=== PATIENT | female | born 1995 | race Caucasian/White ===

== ENCOUNTER 2017-05-24 02:52 | Emergency (ER) | payer BC ==
[~2017-05-24] VITALS: Ht 167.6 cm; Wt 104.5 kg
[2017-05-24 02:57] VITALS: Ht 167.6 cm; Wt 104.5 kg
[2017-05-24] MEDS ORDERED: SOD CHLORIDE 0.9% 500 ML IV STA (03:31)
[2017-05-24] MEDS ORDERED: morphine 4 MG/ML VIAL IV STA ×2 (03:31→04:44)
[2017-05-24] MEDS ORDERED: ONDANSETRON 4 MG INJ IV STA (03:31)
[2017-05-24 04:06] LABS: BASOPHILS % 0.5 % (0.0-2.0); EOSINOPHILS # 0.1 10^3/ul (0.0-0.5); EOSINOPHILS % 1.7 % (0.0-7.0); HEMATOCRIT 41.7 % (37.0-47.0); HEMOGLOBIN 13.7 g/dl (12.0-16.0); LYMPHOCYTES # 2.9 10^3/ul (0.8-2.9); LYMPHOCYTES % 38.2 % (15.0-51.0); MEAN CORPUSCULAR HEMOGLOBIN 26.7 pg (29.0-33.0); MEAN CORPUSCULAR HGB CONC 32.9 g/dl (32.0-37.0); MEAN CORPUSCULAR VOLUME 81.3 fl (82.0-101.0); MEAN PLATELET VOLUME 9.1 fl (7.4-10.4); MONOCYTE # 0.6 10^3/ul (0.3-0.9); MONOCYTES % 7.3 % (0.0-11.0); PLATELET COUNT 310 10^3/UL (140-415); RED BLOOD COUNT 5.13 10^6/ul (4.20-5.40); RED CELL DISTRIBUTION WIDTH 13.1 % (11.5-14.5); WHITE BLOOD COUNT 7.7 10^3/ul (4.8-10.8)
--- NOTE | 2017-05-24 04:18 | RADRPT ---
PROCEDURE: Ultrasound of the abdomen. CLINICAL INDICATION: Right upper quadrant pain. TECHNIQUE: Sonographic images of the abdomen were performed. COMPARISON: No pertinent prior examinations were submitted for comparison. FINDINGS: Liver: The liver is diffusely increased in echogenicity and enlarged, measuring approximately 18.8 cm. The hepatic veins and portal veins are patent with appropriate directional flow. No intrahepatic ductal dilatation is seen. Gallbladder: Multiple stones are noted within the gallbladder. There is no definite gallbladder wal l thickening or pericholecystic free fluid. The common duct measures 4.4 mm. Pancreas: There is limited evaluation of the pancreatic body and tail. The visualized portions of the pancreas are unremarkable. Kidneys: The right kidney measures 11.3 cm. There is normal corticomedullary differentiation. Ther e is no evidence of renal calculus or hydronephrosis. IVC: The visualized portion of the inferior vena cava is unremarkable. Aorta: Normal in size. Free fluid: None. IMPRESSION: Cholelithiasis. Hepatomegaly and hepatic steatosis. RPTAT: HIKT .Aman Oleary MD, Date Time Electronically viewed and signed by .Aman Oleary MD, on 05/24/2017 04:18 .T/
[2017-05-24 04:26] LABS: ALBUMIN 4.1 g/dl (3.3-4.9); ALBUMIN/GLOBULIN RATIO 1.1; BILIRUBIN,INDIRECT 0.2 mg/dl (0-1.1); BILIRUBIN,TOTAL 0.2 mg/dl (0.2-1.3); CALCIUM 9.7 mg/dl (8.4-10.2); CREATININE 0.73 mg/dl (0.44-1.00); POTASSIUM 3.9 mmol/L (3.5-5.1); TOTAL PROTEIN 7.8 g/dl (6.1-8.1)
[2017-05-24 04:35] VITALS: BP 149/93; PULSE 50; RESP 26; TEMP 97.4
--- NOTE | 2017-05-24 05:40 | ERD ---
ER Documentation Chief Complaint Chief Complaint AP x2hr [employer], hx gallstones. +nausea, -emesis HPI 22 year female abdominal pain 2 hours prior to arrival. Patient has history of gallstones. Patient's his pain is in the right upper quadrant mild to moderate intensity no exacerbating relieving factors. It happened after she achieves. Positive nausea but no vomiting. ROS All systems reviewed and are negative except as per history of present illness. Allergies Allergies: Coded Allergies: No Known Allergy (Unverified , 05/24/17) PMhx/Soc Medical and Surgical Hx: pt denies Surgical Hx Hx Miscellaneous Medical Probl: Yes (dx'd w/ gallstones w/i past 1 yr) Hx Alcohol Use: Yes (q week) Hx Substance Use: No Hx Tobacco Use: No Smoking Status: Unknown if ever smoked Physical Exam Vitals Vital Signs Date Time Temp Pulse Resp B/P Pulse Ox O2 Delivery O2 Flow Rate FiO2 05/24/17 04:35 97.4 50 26 149/93 100 Room Air 05/24/17 02:57 97.6 70 18 120/81 100 Physical Exam Const: [] Head: Atraumatic Eyes: Normal Conjunctiva ENT: Normal External Ears, Nose and Mouth. Neck: Full range of motion..~ No meningismus. Resp: Clear to auscultation bilaterally Cardio: Regular rate and rhythm, no murmurs Abd: Soft, non tender, non distended. Normal bowel sounds Skin: No petechiae or rashes Back: No midline or flank tenderness Ext: No cyanosis, or edema Neur: Awake and alert Psych: Normal Mood and Affect Result Diagram: 05/24/17 0327 05/24/17 0327 Results 24 hrs Laboratory Tests Test 05/24/17 03:27 White Blood Count 7.710^3/ul Red Blood Count 5.1310^6/ul Hemoglobin 13.7g/dl Hematocrit 41.7% Mean Corpuscular Volume 81.3fl Mean Corpuscular Hemoglobin 26.7pg Mean Corpuscular Hemoglobin Concent 32.9g/dl Red Cell Distribution Width 13.1% Platelet Count 03709^3/UL Mean Platelet Volume 9.1fl Neutrophils % 52.0% Lymphocytes % 38.2% Monocytes % 7.3% Eosinophils % 1.7% Basophils % 0.5% Nucleated Red Blood Cells % 0.0/100WBC Neutrophils # 4.010^3/ul Lymphocytes # 2.910^3/ul Monocytes # 0.610^3/ul Eosinophils # 0.110^3/ul Basophils # 0.010^3/ul Nucleated Red Blood Cells # 0.010^3/ul Sodium Level 145mmol/L Potassium Level 3.9mmol/L Chloride Level 107mmol/L Carbon Dioxide Level 24mmol/L Anion Gap 18 Blood Urea Nitrogen 11mg/dl Creatinine 0.73mg/dl Glucose Level 139mg/dl Calcium Level 9.7mg/dl Total Bilirubin 0.2mg/dl Direct Bilirubin 0.00mg/dl Indirect Bilirubin 0.2mg/dl Aspartate Amino Transf (AST/SGOT) 20IU/L Alanine Aminotransferase (ALT/SGPT) 32IU/L Alkaline Phosphatase 90IU/L Total Protein 7.8g/dl Albumin 4.1g/dl Globulin 3.70g/dl Albumin/Globulin Ratio 1.10 Lipase 166U/L Serum HCG, Qualitative NEGATIVE Current Medications Medications (Trade) Dose Ordered Sig/Stefanie Route PRN Reason Start Time Stop Time Status Last Admin Dose Admin Sodium Chloride (NS) 500 ml @ 500 mls/hr Q1H STAT IV 05/24/17 03:31 05/24/17 04:30 DC 05/24/17 03:39 Morphine Sulfate (morphine) 4 mg ONCE STAT IV 05/24/17 03:31 05/24/17 03:32 DC 05/24/17 03:39 Ondansetron HCl (Zofran Inj) 4 mg ONCE STAT IV 05/24/17 03:31 05/24/17 03:32 DC 05/24/17 03:39 Morphine Sulfate (morphine) 4 mg ONCE STAT IV 05/24/17 04:44 05/24/17 05:05 DC 05/24/17 04:42 Procedures/MDM Medical decision-makin-year-old female with biliary colic. At this point clinically stable. Patient will be discharged home with [facility]. Follow- up PCP. Return for an 8 hours for serial abdominal exams. Departure Diagnosis: Primary Impression: Abdominal pain Abdominal location: right upper quadrant Qualified Code: R10.11 - Right upper quadrant abdominal pain Condition: Stable DAVID HENDRICKSON May 24, 2017 05:40
[2017-05-24] MEDS ORDERED: ONDA4TAB14 PO (05:41)
[2017-05-24] MEDS ORDERED: HYDR-902 PO (05:41)
[2017-05-24 05:44] LABS: URINE BLOOD (Dip) POC Negative (NEGATIVE)
[2017-05-24 06:54] LABS: ADD UMIC YES; UR ASCORBIC ACID NEGATIVE (NEGATIVE); UR BACTERIA FEW /HPF (NONE SEEN); UR BILIRUBIN (Dip) NEGATIVE (NEGATIVE); UR BLOOD (Dip) NEGATIVE (NEGATIVE); UR CLARITY SLIGHTLY CLOUDY (CLEAR); UR COLOR YELLOW (YELLOW); UR GLUCOSE (Dip) NEGATIVE (NEGATIVE); UR KETONES (Dip) TRACE mg/dL (NEGATIVE); UR LEUKOCYTE ESTERASE (Dip) TRACE Leu/ul (NEGATIVE); UR MUCUS FEW /HPF (NONE SEEN); UR NITRITE (Dip) NEGATIVE (NEGATIVE); UR RBC 1 /HPF (0-5); UR SPECIFIC GRAVITY (Dip) 1.017 (1.003-1.030); UR SQUAMOUS EPITHELIAL CELL FEW /HPF (FEW); UR TOTAL PROTEIN (Dip) NEGATIVE (NEGATIVE); UR UROBILINOGEN (Dip) NEGATIVE (NEGATIVE)
== END 2017-05-24 06:02 | disposition home or self-care (01) ==
LOC: E/R 02:52
DX: R10.11 Right upper quadrant pain (principal); R11.0 Nausea
CPT/HCPCS: 76705; 80053; 81001; 83690; 84703; 85025; 96374; 96375; 96376; 99285; J2270; J2405; J7040; 81003

== ENCOUNTER 2017-06-22 11:17 | Outpatient (CLI) | payer BC ==
[~2017-06-22] VITALS: Ht 165.1 cm; Wt 106.4 kg
[~2017-06-22 11:17] MED LIST: HYDR-902 PO; ONDA4TAB14 PO
[2017-06-22 11:25] VITALS: BP 120/76; PULSE 68; RESP 16; Ht 165.1 cm; Wt 106.4 kg
--- NOTE | 2017-06-22 11:44 | PN ---
Date/Time of Note Date/Time of Note DATE: 06/22/17 TIME: : Assessment/Plan Assessment/Plan Assessment/Plan [facility] Progress Note Date of Service: 06/22/17 Today's Impression & Plan: Overall stable and doing well without evidence for major post operative complications or wound problems. Counselled about getting BMI to below 24 and to stop marijuana use. 1. F/u with PCP 2. F/u with us prn Thank you very much for allowing us to participate in the care of this very nice patient and wonderful family. If there are any questions, please feel free to contact me at . Please note: Spelling or grammatical errors in this note are likely due to EHR/ dictation systems and are not reflective of patient care quality. Also please note that the dictation timestamp of this note does not necessarily reflected time of the visit for this service. Updated Clinical Summary: A very pleasant 22-year-old lady with comorbidities including anxiety as well as BMI 36.7 admitted through the emergency department at [facility] on 05/24/2017 with signs and symptoms consistent with biliary colic and possible early acute cholecystitis. S/p lap deneen [facility] 05/24/17. Comorbidities: 1. Symptomatic cholelithiasis with acute cholecystitis. Known cholelithiasis and 5 visits to the emergency department in the last few months. S/p lap deneen [facility] 05/24/17 2. Anxiety 3. BMI 36.7 4. Slight elevation in amylase (111 05/24/2017) 5. Occasional marijuana use Subjective: No major events or complaints since d/c. No major pain complaints and reportedly under control with medications. No N/V, SOB or CP. + bowel activity Objective: Vitals: reviewed; please also see EHR Physical Exam: Lungs: breathing comfortably without tachypnea; no audible wheezes, rales or rhonchi on gross exam Abd: Soft, non-tender, and non-distended; no peritoneal signs or guarding; incisions c/d/i w/o obvious e/e/d/h Skin: Appears pink and feels warm to touch. Neuro: Awake, alert and follows commands appropriately OMER MORALES M.D. Jun 22, 2017 11:44
== END 2017-06-22 17:00 | disposition home or self-care (01) ==
LOC: HPC 11:17
PROVIDERS: ATTEND Transplant Surgery
DX: K80.00 Calculus of gallbladder with acute cholecystitis without obstruction (principal); F41.9 Anxiety disorder, unspecified; F12.90 Cannabis use, unspecified, uncomplicated; R79.89 Other specified abnormal findings of blood chemistry
CPT/HCPCS: G0463